=== PATIENT | male | born 1985 | race Caucasian/White ===

== ENCOUNTER 2020-09-20 01:33 | Emergency (ER) | payer SELFPAY ==
[2020-11-09] MEDS ORDERED: LODINE CAP 300300 MG PO (04:55)
== END 2020-09-20 02:54 | disposition left against medical advice (07) ==
LOC: ER1 01:33
DX: Z53.21 Procedure and treatment not carried out due to patient leaving prior to being seen by health care provider (principal)

== ENCOUNTER 2020-11-01 16:07 | Emergency (ER) | payer SELFPAY | END 2020-11-01 16:08 | disposition left against medical advice (07) | LOC: ER1 16:07 | DX: Z53.21 Procedure and treatment not carried out due to patient leaving prior to being seen by health care provider (principal) ==

== ENCOUNTER → 2020-11-09 | Emergency (ER) | payer SELFPAY ==
[~2020-11-09] MED LIST: LODINE CAP 300300 MG PO
== END | disposition home or self-care (01) ==
LOC: ER1 04:06
DX: S62.524A Nondisplaced fracture of distal phalanx of right thumb, initial encounter for closed fracture (principal); F17.210 Nicotine dependence, cigarettes, uncomplicated; W23.0XXA Caught, crushed, jammed, or pinched between moving objects, initial encounter
CPT/HCPCS: 29125; 73130; 99283